=== PATIENT | male | born 1965 | race Caucasian/White ===

== ENCOUNTER 2020-12-08 17:46 | Inpatient (IN) | payer BC, SELFPAY ==
[~2020-12-08] VITALS: Ht 175.3 cm; Wt 76.2 kg
--- NOTE | 2020-12-08 17:46 | NUR ---
Patient BIBA ALS accompanied by Little SANTOS, transferred to bed 2. RN evaluating patient at bedside.
[2020-12-08 17:51] VITALS: BP 146/74
--- NOTE | 2020-12-08 18:00 | NUR ---
PATIENT PRESENTS TO ED WITH C/O CHEST PAIN AND RAPID HR . PT STATES THAT HE WAS BENDING OVER WHEN SUDDENLY HE FELT PRESSURE AND PAIN IN HIS CHEST THEN HIS HEAR STARTED RACING. HR WAS 240, THREE DOSES OF 6MG ADENOSINE, TOTAL 18MG, WAS GIVEN BY AMBULANCE. DENIES N/V/D; SKIN IS PINK/WARM/DRY; AAOX4 WITH EVEN AND STEADY GAIT; LUNGS CLEAR BL; HR EVEN AND REGULAR; PT DENIES ANY FEVER, CP, SOB, OR COUGH AT THIS TIME; PATIENT STATES PAIN OF 0/10 AT THIS TIME; VSS; PATIENT POSITIONED FOR COMFORT; HOB ELEVATED; BEDRAILS UP X2; BED DOWN. ER MD MADE AWARE OF PT STATUS.
[2020-12-08] MEDS ORDERED: NACL 0.9% 500 ML IV ONE (18:05)
[2020-12-08 18:39] LABS: BASOPHILS # (AUTO) 0.1 K/uL (0.00-0.22); BASOPHILS % (AUTO) 0.7 % (0.0-2.0); EOSINOPHILS # (AUTO) 0.1 K/uL (0-0.4); EOSINOPHILS % (AUTO) 1.6 % (0.0-4.0); HEMATOCRIT 41.5 % (36-52); HEMOGLOBIN 14.1 g/dL (12.0-18.0); LYMPHOCYTES # (AUTO) 2.9 K/uL (2.0-11.5); LYMPHOCYTES % (AUTO) 38.5 % (20.5-51.1); MEAN CORPUSCULAR HEMOGLOBIN 31 pg (27-31); MEAN CORPUSCULAR HGB CONC 34 g/dL (33-37); MEAN CORPUSCULAR VOLUME 92.2 fL (80-94); MONOCYTES # (AUTO) 0.5 K/uL (0.8-1.0); MONOCYTES % (AUTO) 6.1 % (1.7-9.3); NEUTROPHILS % (AUTO) 53.1 % (42.2-75.2); PLATELET COUNT (AUTO) 199 K/uL (140-450); RED CELL DISTRIBUTION WIDTH 14.4 % (11.6-13.7); WHITE BLOOD COUNT (AUTO) 7.5 K/uL (4.8-10.8)
[2020-12-08 18:51] LABS: PROTHROMBIN TIME 10.1 secs (10.8-13.4)
[2020-12-08 18:55] LABS: ALBUMIN 3.7 g/dL (3.4-5.0); ANION GAP 8.7 (8-16); CARBON DIOXIDE 29.7 mmol/L (21-32); CREATININE 1.2 mg/dL (0.6-1.3); POTASSIUM 3.4 mmol/L (3.5-5.1); TOTAL BILIRUBIN 0.4 mg/dL (0.0-1.0)
--- NOTE | 2020-12-08 19:24 | NUR ---
Assumed care of pt. Pt sitting in high-folwers position. VSS. Pt on cardiac tele monitor. Will continue to monitor.
--- NOTE | 2020-12-08 19:57 | NUR ---
Pt given urinal
[2020-12-08] MEDS ORDERED: ASPIRIN 81 MG TAB.CHEW PO ONE (21:05)
--- NOTE | 2020-12-08 22:09 | NUR ---
Pt given water. VSS. Will continue to monitor.
--- NOTE | 2020-12-08 22:20 | NUR ---
Laura Swab collected and taken to lab
--- NOTE | 2020-12-08 22:52 | NUR ---
Pt asked to speak to MD. GODDARD at bedside at this time updating pt on plan of care.
[2020-12-08] MEDS ORDERED: DOCUSATE SODIUM 100 MG GELCAP PO PRN (23:30)
[2020-12-08] MEDS ORDERED: HYDROcodone/APAP 7.5/325 MG 1 TAB PO PRN (23:30)
[2020-12-08] MEDS ORDERED: POTASSIUM CHLORIDE 10 MEQ TABER PO PRN (23:30)
[2020-12-08] MEDS ORDERED: NACL 0.9% 1,000 ML IV SCH (23:30)
[2020-12-08] MEDS ORDERED: ACETAMINOPHEN 325 MG TAB PO PRN (23:30)
[2020-12-08] MEDS ORDERED: ONDANSETRON 4 MG/2 ML VIAL IM/IVP PRN (23:30)
[2020-12-09 00:07] LABS: CHOL/HDL RATIO 5.8 (1-4.5); FREE T4 (FREE THYROXINE) 0.98 ng/dL (0.76-1.46); THYROID STIMULATING HORMONE 3.8 uIU/mL (0.34-3.74)
--- NOTE | 2020-12-09 00:33 | NUR ---
Pt resting in bed. Updated on plan of care.
[2020-12-09 01:06] LABS: APPEARANCE,URINE CLEAR (CLEAR); BILIRUBIN,URINE NEGATIVE (NEGATIVE); BLOOD, URINE NEGATIVE (NEGATIVE); COLOR,URINE YELLOW (YELLOW); LEUKOCYTE ESTERASE ,URINE NEGATIVE (NEGATIVE); NITRITE, URINE NEGATIVE (NEGATIVE); UGLUCOSE NEGATIVE (NEGATIVE)
[2020-12-09 01:17] LABS: BARBITURATE, URINE NEGATIVE ng/ml (NEG <=200); BENZODIAZEPINE, URINE NEGATIVE ng/mL (NEG <=200)
[2020-12-09 01:18] LABS: CANNABINOID, URINE NEGATIVE ng/mL (NEG <=50); COCAINE, URINE NEGATIVE ng/mL (NEG <=300); OPIATE, URINE NEGATIVE ng/mL (NEG <=2000); PHENCYCLIDINE SCREEN,URINE NEGATIVE ng/mL (NEG <=25)
--- NOTE | 2020-12-09 03:32 | NUR ---
Pt resting in bed with eyes closed. VSS. No changes upon assessment. Will continue to monitor.
--- NOTE | 2020-12-09 06:14 | NUR ---
Pt awake and alert. VSS on cardiac tele monitor. Will continue to monitor.
--- NOTE | 2020-12-09 07:09 | NUR ---
Report given and care endorsed to RENA Leiva
[2020-12-09 08:47] LABS: BASOPHILS % (AUTO) 0.2 % (0.0-2.0); EOSINOPHILS # (AUTO) 0.1 K/uL (0-0.4); EOSINOPHILS % (AUTO) 0.7 % (0.0-4.0); HEMATOCRIT 43.8 % (36-52); HEMOGLOBIN 14.9 g/dL (12.0-18.0); LYMPHOCYTES # (AUTO) 1.8 K/uL (2.0-11.5); LYMPHOCYTES % (AUTO) 22.5 % (20.5-51.1); MEAN CORPUSCULAR HEMOGLOBIN 32 pg (27-31); MEAN CORPUSCULAR HGB CONC 34 g/dL (33-37); MEAN CORPUSCULAR VOLUME 92.7 fL (80-94); MONOCYTES # (AUTO) 0.4 K/uL (0.8-1.0); MONOCYTES % (AUTO) 5.7 % (1.7-9.3); NEUTROPHILS # (AUTO) 5.6 K/uL (1.8-7.7); NEUTROPHILS % (AUTO) 70.9 % (42.2-75.2); PLATELET COUNT (AUTO) 217 K/uL (140-450); RED BLOOD CELL COUNT(AUTO) 4.72 MIL/uL (4.20-6.10); RED CELL DISTRIBUTION WIDTH 14.4 % (11.6-13.7); WHITE BLOOD COUNT (AUTO) 7.9 K/uL (4.8-10.8)
[2020-12-09] MEDS ORDERED: ECOTRIN 81 MG TABEC PO SCH (09:00)
--- NOTE | 2020-12-09 09:14 | NUR ---
PATIENT HAS BEEN SCREENED AND CATEGORIZED MODERATE NUTRITION RISK. PATIENT WILL BE SEEN WITHIN 3-5 DAYS OF ADMISSION. 12/11/20 12/13/[address]
--- NOTE | 2020-12-09 10:33 | NUR ---
SOCIAL WORK NOTE: Patient's Orientation Person Situation Place Time Information Provided By PATIENT Comments SW WAS UNABLE TO MEET PATIENT AT BEDSIDE. SW COMPLETED ASSESSMENT TELEPHONICALLY. Rotary Driller Helper, Realtionship and Phone Number FABIAN DANIEL [phone] [facility] Power of Carton Stapler No Does Patient Have a POLST No Identifying Problems No Social Work Triggers Is A Social Work Consult Needed No Mandate Report Filed No Explanation Of Identifying Problems PATIENT IS A 54-YEAR-OLD MALE ADMITTED FOR NSTEMI. PATIENT HAS PMHX OF COVID AND HYPERTENSION. PATIENT REPORTED NO HX OF SUBSTANCE ABUSE OR MENTAL HEALTH. Admitted From Home Pre-Admission Level Of Functioning Status Independent/Ambulatory Prior Resources/Services Used In Last 12 Months No Prior Resources Used Prior DME No Prior DME Used Dialysis Comments N/A Living Situation Lives With Family House Patient Had Caregiver No Home Support No Caregiver Issues Financial Issues No Known Financial Issue Referral To The Financial Counselor Needed No Factors/Needs No D/C Needs Identified Pt/Rep Participated In Discharge Plan Yes Patient/Family Agress With Discharge Plan Yes Discharge Plan Comments TENTATIVE DISCHARGE PLAN IS FOR PATIENT TO RETURN HOME. DC Plan Status Initiated
[2020-12-09 10:39] LABS: ANION GAP 14.2 (8-16); CARBON DIOXIDE 27.2 mmol/L (21-32); CREATININE 1.2 mg/dL (0.6-1.3); POTASSIUM 4.4 mmol/L (3.5-5.1)
--- NOTE | 2020-12-09 11:12 | NUR ---
PATIENT SLEEPING COMFORTABLY IN BED. NOT IN ANY DISTRESS.
[2020-12-09] MEDS ORDERED: ATEN50TA8 PO (12:21)
[2020-12-09] MEDS ORDERED: DILT-135 (12:21)
[2020-12-09] MEDS ORDERED: ATOR20TA PO (12:21)
[2020-12-09] MEDS ORDERED: DILT-135 PO (19:28)
--- NOTE | 2020-12-09 19:30 | NUR ---
GODFREY REPORT FROM [facility] FOR CONTINUITY OF CARE.
[2020-12-09 20:13] VITALS: BP 131/51
--- NOTE | 2020-12-09 20:20 | NUR ---
CALLED DR. MURRAY TO CONFIRM DISCHARGE ORDERS AT THIS TIME. DR. MURRAY GAVE ORDERS TO D/C PT AT THIS TIME.
[2020-12-09 20:45] VITALS: BP 134/68
--- NOTE | 2020-12-09 20:45 | NUR ---
Patient discharged with v/s stable. Written and verbal after care instructions given and explained. Patient alert, oriented and verbalized understanding of instructions. Ambulatory with steady gait. All questions addressed prior to discharge. ID band removed. Patient advised to follow up with PMD. Rx of CARDIZEM given. Patient educated on indication of medication including possible reaction and side effects. Opportunity to ask questions provided and answered. IV removed, catheter intact and site benign. Applied folded 4x4 gauze and tape to stop bleeding.
[2020-12-10 08:07] LABS: T4 (THYROXINE) 4.9 ug/dL (4.5-12.0)
[2020-12-10] MEDS ORDERED: DILTIAZEM 30 MG TAB PO SCH (09:00)
== END 2020-12-09 20:45 | disposition home or self-care (01) | DRG 310 ==
LOC: MED 17:46 → MTU 23:08
PROVIDERS: ADMIT Emergency Medicine; ATTEND Emergency Medicine
DX: I47.1 Supraventricular tachycardia (principal); Z86.16 Personal history of COVID-19; I10 Essential (primary) hypertension; Z20.822 Contact with and (suspected) exposure to COVID-19; E78.5 Hyperlipidemia, unspecified; E78.00 Pure hypercholesterolemia, unspecified; Z83.3 Family history of diabetes mellitus; Z82.49 Family history of ischemic heart disease and other diseases of the circulatory system
CPT/HCPCS: 36415; 71045; 80048; 80053; 80305; 81003; 83036; 83880; 84436; 84439; 84443; 84479; 84484; 85025; 85610; 85730; 93005